=== PATIENT | female | born 1960 | race Caucasian/White ===

== ENCOUNTER → 2024-12-08 08:56 | Outpatient (BNVA) | payer MEDICARE, SELFPAY | PROVIDERS: Visit Provider Internal Medicine Rheumatology | DX: L40.50 Arthropathic psoriasis, unspecified (principal); L40.0 Psoriasis vulgaris; Z79.899 Other long term (current) drug therapy; Z71.85 Encounter for immunization safety counseling | CPT/HCPCS: 36415; 82306; 83520; 86480; 86704; 86803; 87340; 87517; 99204 ==